=== PATIENT | male | born 1975 | race Two or more races ===

== ENCOUNTER 2017-06-08 17:37 | Emergency (ER) | payer BC ==
[~2017-06-08] VITALS: Ht 162.6 cm; Wt 84.0 kg
[2017-06-08 17:39] VITALS: BP 183/88; PULSE 65; RESP 14; TEMP 98.1; O2SAT 97
[2017-06-08 17:58] VITALS: RESP 17; O2SAT 98
--- NOTE | 2017-06-08 17:59 | PD ---
HPI Chief Complaint: Edema Time Seen by Provider: 17:49 Travel History International Travel<30 days: No Contact w/Intl Traveler<30days: No Traveled to known affect area: No History of Present Illness HPI The patient is [place]-speaking and the patient's nurse Rubi was used for translation. The patient was okay with this. This is a 41-year-old male who is here for evaluation of bilateral feet swelling. Patient reports that he first noticed the symptoms last night. He reports that he had a right axillary abscess that was drained about a week ago and believes he may have one in his left axilla today. He is denying leg pain. No chest pain or dyspnea. He is mainly concerned about the swelling. He denies alcohol or illicit drug use. No IVDU. He is a nonsmoker. [facility] Past Medical History Diminished Hearing: No Integumentary: Yes (ABSCESS HX) Tetanus Vaccination: > 5 Years Influenza Vaccination: No Past Surgical History Other Surgery: Yes (ABSCESS REMOVED ) Social History Alcohol Use: No Tobacco Use: No Substance Use: No Allergies-Medications (Allergen,Severity, Reaction): Coded Allergies: No Known Allergies (Verified Allergy, Unknown, 06/08/17) Reported Meds & Prescriptions Reported Meds & Active Scripts Active No Active Prescriptions or Reported Medications Review of Systems Except as stated in HPI: all other systems reviewed are Neg Physical Exam Narrative GENERAL: Well-developed, well-nourished, comfortable, no apparent distress. SKIN: Focused skin assessment warm/dry. Bilateral axilla are normal without erythema, warmth, or induration. HEAD: Atraumatic. Normocephalic. EYES: Pupils equal and round. No scleral icterus. No injection or drainage. ENT: Mucous membranes pink and moist. NECK: Trachea midline. No JVD. CARDIOVASCULAR: Regular rate and rhythm. Bilateral dorsalis pedis pulses are brisk and equal. RESPIRATORY: No accessory muscle use. Clear to auscultation. Breath sounds equal bilaterally. GASTROINTESTINAL: Abdomen soft, non-tender, nondistended. MUSCULOSKELETAL: No obvious deformities. No clubbing. No cyanosis. Mild bilateral foot edema from foot ankle. Bilateral calves are supple without tenderness. NEUROLOGICAL: Awake and alert. No obvious cranial nerve deficits. Motor grossly within normal limits. Normal speech. PSYCHIATRIC: Appropriate mood and affect; insight and judgment normal. Data Data Last Documented VS Vital Signs Date Time Temp Pulse Resp B/P (MAP) Pulse Ox O2 Delivery O2 Flow Rate FiO2 06/08/17 17:58 17 98 Room Air 06/08/17 17:57 68 06/08/17 17:39 98.1 Orders Orders Complete Blood Count With Diff (06/08/17 17:54) Comprehensive Metabolic Panel (06/08/17 17:54) Iv Access Insert/Monitor (06/08/17 17:54) Ecg Monitoring (06/08/17 17:54) Oximetry (06/08/17 17:54) Sodium Chloride 0.9% Flush (Ns Flush) (06/08/17 18:00) Us Leg Venous Doppler Bilat (06/08/17 ) Labs Laboratory Tests Test 06/08/17 17:52 White Blood Count 7.4 TH/MM3 Red Blood Count 4.33 MIL/MM3 Hemoglobin 11.3 GM/DL Hematocrit 35.3 % Mean Corpuscular Volume 81.5 FL Mean Corpuscular Hemoglobin 26.1 PG Mean Corpuscular Hemoglobin Concent 32.1 % Red Cell Distribution Width 14.4 % Platelet Count 202 TH/MM3 Mean Platelet Volume 8.6 FL Neutrophils (%) (Auto) 49.1 % Lymphocytes (%) (Auto) 33.2 % Monocytes (%) (Auto) 12.5 % Eosinophils (%) (Auto) 4.8 % Basophils (%) (Auto) 0.4 % Neutrophils # (Auto) 3.6 TH/MM3 Lymphocytes # (Auto) 2.5 TH/MM3 Monocytes # (Auto) 0.9 TH/MM3 Eosinophils # (Auto) 0.4 TH/MM3 Basophils # (Auto) 0.0 TH/MM3 CBC Comment DIFF FINAL Differential Comment Blood Urea Nitrogen 43 MG/DL Creatinine 1.39 MG/DL Random Glucose 104 MG/DL Total Protein 6.4 GM/DL Albumin 2.3 GM/DL Calcium Level 7.8 MG/DL Alkaline Phosphatase 82 U/L Aspartate Amino Transf (AST/SGOT) 31 U/L Alanine Aminotransferase (ALT/SGPT) 37 U/L Total Bilirubin 0.1 MG/DL Sodium Level 142 MEQ/L Potassium Level 4.5 MEQ/L Chloride Level 109 MEQ/L Carbon Dioxide Level 25.2 MEQ/L Anion Gap 8 MEQ/L Estimat Glomerular Filtration Rate 56 ML/MIN MDM Medical Decision Making Medical Screen Exam Complete: Yes Emergency Medical Condition: Yes Differential Diagnosis Dependent edema, venous insufficiency, DVT unlikely, fluid overload unlikely, Narrative Course Vital signs show heart rate 65, blood pressure 183/88, pulse ox 98% on room air , oral temp of 98.1F. CBC: WBC 7.4, hemoglobin 11.3, hematocrit 35.3, platelets 202. CMP is remarkable for BUN 43, creatinine 1.39, GFR 56. Bilateral lower extremity duplex: No DVT is identified within either lower extremity. Left Ortiz cyst. Patient was made aware of all findings. He denies melena or hematochezia. He denies any known history of anemia. Stool is heme negative and brown. At this point the patient is stable for discharge home with further workup as an outpatient. He will be given the information to the [facility] where he can follow-up this week. He was informed on when to return to the emergency department. He verbalizes understanding and agreement with plan. [facility] Point of Care Internal Pos. & Neg. Controls: Passed Fecal Specimen Occult Blood: Negative Comment Heme-negative brown stool Diagnosis Primary Impression: Edema of both feet Additional Impressions: Ortiz cyst Qualified Codes: M71.22 - Synovial cyst of popliteal space [Ortiz], left knee Anemia Qualified Codes: D64.9 - Anemia, unspecified Renal insufficiency Referrals: [facility] 3 days Primary Care Physician 3 days Additional Instructions: Follow-up with a primary care physician or in the [facility] this week. Return to the emergency department for worsening symptoms or any other concerns. Scripts No Active Prescriptions or Reported Meds Disposition: 01 DISCHARGE HOME Condition: Stable Lev Meredith MD Jun 08, 2017 17:59
[2017-06-08] MEDS ORDERED: SODIUM CHLORIDE 0.9% FLUSH 10 ML FLUSH IV FLUSH PRN (18:00)
[2017-06-08 18:38] LABS: AUTOMATED NEUTROPHIL # 3.6 TH/MM3 (1.8-7.7); BASOPHIL % 0.4 % (0.0-2.0); EOSINOPHIL # 0.4 TH/MM3 (0-0.4); EOSINOPHIL % 4.8 % (0.0-4.0); HEMATOCRIT 35.3 % (39.0-51.0); HEMO FLAGS DIFF FINAL; LYMPH % 33.2 % (9.0-44.0); LYMPHOCYTE # 2.5 TH/MM3 (1.0-4.8); MEAN CELL VOLUME 81.5 FL (80.0-100.0); MEAN CORPUSCULAR HEMOGLOBIN 26.1 PG (27.0-34.0); MEAN CORPUSCULAR HGB CONC 32.1 % (32.0-36.0); MONO % 12.5 % (0.0-8.0); NEUT % 49.1 % (16.0-70.0); PLATELET COUNT 202 TH/MM3 (150-450); RED BLOOD COUNT 4.33 MIL/MM3 (4.50-5.90); RED CELL DISTRIBUTION WIDTH 14.4 % (11.6-17.2); WHITE BLOOD COUNT 7.4 TH/MM3 (4.0-11.0)
--- NOTE | 2017-06-08 19:03 | RADRPT ---
EXAM DATE/TIME: 06/08/2017 18:32 [facility] COMPARISON: No previous studies available for comparison. INDICATIONS : Bilateral leg swelling. MEDICAL HISTORY : Bilateral leg swelling. History of skin abscess. SURGICAL HISTORY : Abscess removal. ENCOUNTER: Initial ACUITY: 1 day PAIN SCORE: 2/10 LOCATION: Bilateral leg. TECHNIQUE: Venous ultrasound of the left and right leg was performed from the inguinal ligament to the proximal calf. Real-time, color Doppler and spectral tracing, compression and augmentation techniques were us ed. FINDINGS: RIGHT LEG: There is normal compressibility of the deep venous system from the inguinal region to the proximal ca lf. No echogenic clot is seen in the lumen of the common femoral, femoral, popliteal, and posterior tibial veins. There is a normal response of the venous system to proximal and distal augmentation an d respiration. LEFT LEG: There is normal compressibility of the deep venous system from the inguinal region to the proximal ca lf. No echogenic clot is seen in the lumen of the common femoral, femoral, popliteal, and posterior tibial veins. There is a normal response of the venous system to proximal and distal augmentation an d respiration. There is an anechoic avascular lesion in the popliteal fossa measuring 3.2 x 2.1 x 1.6 cm representin g a Ortiz's cyst. CONCLUSION: No DVT is identified within either lower extremity. Flaquito Ovalles MD on June 08, 2017 at 19:00 Board Certified Radiologist. This report was verified electronically.
[2017-06-08 19:11] LABS: ANION GAP 8 MEQ/L (5-15); AST (GOT) 31 U/L (15-37); BICARBONATE 25.2 MEQ/L (21.0-32.0); BLOOD UREA NITROGEN 43 MG/DL (7-18); CHLORIDE 109 MEQ/L (98-107); GLOMERULAR FILTRATION RATE 56 ML/MIN (>89); POTASSIUM 4.5 MEQ/L (3.5-5.1); SODIUM (NA) 142 MEQ/L (136-145)
[2017-06-08 19:12] LABS: ALT (GPT) 37 U/L (12-78)
[2017-06-08 19:17] LABS: ALKALINE PHOSPHATASE 82 U/L (45-117); TOTAL BILIRUBIN ADULT 0.1 MG/DL (0.2-1.0)
== END 2017-06-08 20:19 | disposition home or self-care (01) ==
LOC: NEPD 17:37
DX: R60.9 Edema, unspecified (principal); M71.22 Synovial cyst of popliteal space [Baker], left knee; D64.9 Anemia, unspecified; N28.9 Disorder of kidney and ureter, unspecified
CPT/HCPCS: 80053; 85025; 93970; 99284

== ENCOUNTER 2017-06-11 13:15 | Emergency (ER) | payer BC ==
[2017-06-11 13:16] VITALS: BP 188/104; PULSE 70; RESP 20; TEMP 97.9; O2SAT 98
--- NOTE | 2017-06-11 14:10 | RADRPT ---
EXAM DATE/TIME: 06/11/2017 14:01 [facility] COMPARISON: No previous studies available for comparison. INDICATIONS : Swelling in legs MEDICAL HISTORY : None. SURGICAL HISTORY : ENCOUNTER: Initial ACUITY: 2 days PAIN SCORE: 0/10 LOCATION: chest FINDINGS: Frontal and lateral views of the chest demonstrate a normal-sized cardiac silhouette. There is mild i nterstitial prominence in the lower lung zones with likely Anant B-lines in the right lower lung zon e. No pleural effusion or pneumothorax is identified. The bones and soft tissues demonstrate no acute finding. CONCLUSION: Mild interstitial prominence with possible Anant B-lines suggesting interstitial pulmonary edema. Flaquito Ovalles MD on June 11, 2017 at 14:05 Board Certified Radiologist. This report was verified electronically.
[2017-06-11 15:17] LABS: PROTHROMBIN TIME - PATIENT 10.7 SEC (9.8-11.6)
[2017-06-11 15:21] LABS: APTT (PATIENT) 28.5 SEC (24.3-30.1)
[2017-06-11 15:29] LABS: ANION GAP 4 MEQ/L (5-15); BLOOD UREA NITROGEN 28 MG/DL (7-18); CHLORIDE 110 MEQ/L (98-107); CREATINE KINASE 306 U/L (39-308); GLOMERULAR FILTRATION RATE 84 ML/MIN (>89); MAGNESIUM 2.6 MG/DL (1.5-2.5); POTASSIUM 4.8 MEQ/L (3.5-5.1); SODIUM (NA) 139 MEQ/L (136-145)
[2017-06-11 16:01] LABS: CKMB 3.6 NG/ML (0.5-3.6)
[2017-06-11] MEDS ORDERED: POTA-163 PO (16:55)
[2017-06-11] MEDS ORDERED: FURO1TAB62 PO (16:55)
--- NOTE | 2017-06-11 16:55 | PD ---
HPI Chief Complaint: Hypertension Time Seen by Provider: 16:31 Travel History International Travel<30 days: No Contact w/Intl Traveler<30days: No Traveled to known affect area: No History of Present Illness HPI This is a 41-year-old male who presents to the emergency department with 1 week of increasing swelling of his legs, face and abdomen. He feels more weak and tired than usual. He denies any chest pain. His symptoms of been constant and worsening. He's been having trouble working. He has no medical history. He is from [facility] but moved here several years ago. He doesn't have a primary care physician. PFSH Past Medical History Medical History: Denies Significant Hx Diminished Hearing: No Integumentary: Yes (ABSCESS HX) Tetanus Vaccination: Unknown ?: Not Past Surgical History Surgical History: No Previous Surgery Other Surgery: Yes (ABSCESS REMOVED ) Social History Alcohol Use: No Tobacco Use: No Substance Use: No Allergies-Medications (Allergen,Severity, Reaction): Coded Allergies: No Known Allergies (Verified Allergy, Unknown, 06/08/17) Reported Meds & Prescriptions Reported Meds & Active Scripts Active Potassium Chloride ER (Potassium Chloride) 20 Meq Tab 20 Meq PO DAILY Lasix (Furosemide) 20 Mg Tab 20 Mg PO DAILY Review of Systems Except as stated in HPI: all other systems reviewed are Neg Physical Exam Narrative GENERAL:Well appearing, no acute distress SKIN: Focused skin assessment warm and dry. HEAD: Atraumatic. Normocephalic. EYES: Pupils equal and round. No injection or drainage. ENT: Moist mucous membranes NECK: Trachea midline. CARDIOVASCULAR: Regular rate and rhythm. No murmur appreciated. 2+ bilateral pitting edema in the lower extremities. RESPIRATORY: Rales in the bilateral lung bases. GASTROINTESTINAL: Abdomen soft, non-tender, nondistended. MUSCULOSKELETAL: No obvious deformities. NEUROLOGICAL: Awake and alert. No obvious cranial nerve deficits. Moving all extremities. PSYCHIATRIC: Appropriate mood and affect; insight and judgment normal. Data Data Last Documented VS Vital Signs Date Time Temp Pulse Resp B/P (MAP) Pulse Ox O2 Delivery O2 Flow Rate FiO2 06/11/17 13:16 97.9 70 20 188/104 (132) 98 Orders Orders Electrocardiogram (06/11/17 13:29) Basic Metabolic Panel (Bmp) (06/11/17 13:29) B-Type Natriuretic Peptide (06/11/17 13:29) Ckmb (Isoenzyme) Profile (06/11/17 13:29) Magnesium (Mg) (06/11/17 13:29) Prothrombin Time / Inr (Pt) (06/11/17 13:29) Act Partial Throm Time (Ptt) (06/11/17 13:29) Troponin I (06/11/17 13:29) Chest, Pa & Lat (06/11/17 13:29) CKMB (06/11/17 14:15) CKMB% (06/11/17 14:15) Ed Discharge Order (06/11/17 16:56) Labs Laboratory Tests Test 06/11/17 14: Prothrombin Time 10.7 SEC Prothromb Time International Ratio 1.0 RATIO Activated Partial Thromboplast Time 28.5 SEC Blood Urea Nitrogen 28 MG/DL Creatinine 0.98 MG/DL Random Glucose 103 MG/DL Calcium Level 8.4 MG/DL Magnesium Level 2.6 MG/DL Sodium Level 139 MEQ/L Potassium Level 4.8 MEQ/L Chloride Level 110 MEQ/L Carbon Dioxide Level 25.0 MEQ/L Anion Gap 4 MEQ/L Estimat Glomerular Filtration Rate 84 ML/MIN Total Creatine Kinase 306 U/L Creatine Kinase MB 3.6 NG/ML Troponin I LESS THAN 0.02 NG/ML B-Type Natriuretic Peptide 398 PG/ML MDM Medical Decision Making Medical Screen Exam Complete: Yes Emergency Medical Condition: Yes Medical Record Reviewed: Yes (patient was seen in the emergency department 3 days ago and diagnosed with a Ortiz cyst on the left) Interpretation(s) EKG: Normal sinus rhythm with no ST changes BNP is 398 Troponin is 0.02 Creatinine is improved from prior Differential Diagnosis Congestive heart failure, DVT, electrolyte abnormality, renal failure Narrative Course This is a 41-year-old male who presents to the emergency department with increasing lower extremity swelling that going on for the past week. He denies any chest pain. EKG is nonischemic. He was placed on a monitor and an IV was established. Labs demonstrate a BNP of 398 and a normal troponin. Chest x-ray demonstrates some pulmonary edema. I think this is consistent with congestive heart failure. Patient is not hypoxic and is otherwise well-appearing. I think is appropriate for an outpatient evaluation. I spoke to the patient via trial attorney through [employer] and clearly explicitly explained to him that he needs to follow-up with [facility]. He was handed a flyer with the address and phone number. I also placed him on 1 week's worth of Lasix and potassium. He was told that if he feels worse at all he should return to the emergency department. Diagnosis Primary Impression: Congestive heart failure Qualified Codes: I50.9 - Heart failure, unspecified Patient Instructions: General Instructions Additional Instructions: If you develop severe chest pain, shortness of breath, sweating, lightheadedness , dizziness or difficulty breathing return to the emergency department immediately. It is very important that you follow-up with a primary care physician as soon as possible because I believe you have congestive heart failure in need of further evaluation. Med/Other Pt SpecificInfo: Prescription(s) given Scripts Potassium Chloride ER (Potassium Chloride ER) 20 Meq Tab 20 MEQ PO DAILY for Electrolyte Replacement, #7 TAB 0 Refills Prov: Luz Ji MD 06/11/17 Furosemide (Lasix) 20 Mg Tab 20 MG PO DAILY, #7 TAB 0 Refills Prov: Luz Ji MD 06/11/17 Disposition: 01 DISCHARGE HOME Condition: Stable Luz Ji MD Jun 11, 2017 16:55
--- NOTE | 2017-06-11 21:29 | EKG ---
Date Performed: 06/11/2017 Time Performed: 16:29:24 PTAGE: 41 years EKG: Sinus rhythm NORMAL ECG NO PREVIOUS TRACING DOCTOR: Gabe Rai Interpretating Date/Time 06/11/2017 21:28:41
== END 2017-06-11 18:39 | disposition home or self-care (01) ==
LOC: NEPC 13:15
DX: I50.9 Heart failure, unspecified (principal); I10 Essential (primary) hypertension; M71.22 Synovial cyst of popliteal space [Baker], left knee
CPT/HCPCS: 71020; 80048; 82550; 82552; 83735; 83880; 84484; 85610; 85730; 93005; 99285